=== PATIENT | female | born 1970 | race Caucasian/White ===

== ENCOUNTER 2019-04-24 17:24 | Emergency (ER) | payer BC, OTHER ==
[~2019-04-24] VITALS: Ht 167.6 cm; Wt 94.3 kg
[2019-04-24] MEDS ORDERED: GLUCOPHAGE1000 MG PO (17:26)
[2019-04-24] MEDS ORDERED: ALDACTONE50 MG PO (17:27)
[2019-04-24] MEDS ORDERED: ADDERALL 15 MG15 MG PO (17:27)
[2019-04-24 17:50] LABS: URINE BILIRUBIN NEGATIVE (Negative); URINE BLOOD 3+ (Negative); URINE CLARITY CLEAR; URINE COLOR YELLOW; URINE GLUCOSE-RANDOM* NEGATIVE (Negative); URINE KETONES NEGATIVE (Negative); URINE LEUKOCYTES-REFLEX TRACE (Negative); URINE NITRITE-REFLEX NEGATIVE (Negative); URINE PROTEIN (DIPSTICK) NEGATIVE (Negative); URINE SPECIFIC GRAVITY <= 1.005 (1.005-1.035); URINE UROBILINOGEN 0.2 E.U./dl (0.2-1.0)
[2019-04-24 18:01] LABS: BACTERIA-REFLEX 1-9 Few /HPF (None Seen); CASTS None Seen /LPF (None Seen); CRYSTALS None Seen /LPF (None Seen); SQUAMOUS 0-3 Few /LPF (0-3); URINE WBC-REFLEX 0-5 Rare /HPF (0-5)
[2019-04-24 18:03] LABS: URINE RBC 0-2 Rare /HPF (0-2)
[2019-04-24 18:31] LABS: ABSOLUTE NEUTROPHILS 5.2 thou/uL (1.4-8.2); BASOPHILS 0.7 % (0.0-2.0); EOSINOPHILS 1.2 % (0.0-3.0); HEMATOCRIT 40.4 % (37.0-47.0); HEMOGLOBIN 13.9 gm/dL (12.0-15.0); LYMPHOCYTES 28.8 % (24.0-44.0); MCH 29.8 pg (26.0-34.0); MCHC 34.3 g/dL (28.0-37.0); MCV 86.8 fL (80.0-100.0); PLATELET COUNT 275 thou/uL (150-400); POLYS 64.3 % (36.0-66.0); RBC 4.65 mil/uL (4.20-5.00); WBC 8.2 thou/uL (4.0-11.0)
[2019-04-24 18:40] LABS: CALCIUM 8.8 mg/dL (8.5-10.1); CREATININE 0.7 mg/dL (0.6-1.0); POTASSIUM 3.9 mmol/L (3.5-5.1)
[2019-04-24 18:46] LABS: ALBUMIN 3.5 g/dL (3.4-5.0); TOTAL BILIRUBIN 0.4 mg/dL (<0.1-1.0)
[2019-04-24] MEDS ORDERED: KEFLEX500 M1 PO (20:33)
[2019-04-24] MEDS ORDERED: ROBAXIN 750 MG750 MG PO (20:33)
[2019-04-24 21:03] VITALS: BP 107/68
== END 2019-04-24 21:04 | disposition home or self-care (01) ==
LOC: ER 17:24
PROVIDERS: Physician Assistant
DX: N39.0 Urinary tract infection, site not specified (principal); E28.2 Polycystic ovarian syndrome; Z90.49 Acquired absence of other specified parts of digestive tract